=== PATIENT | female | born 1990 | race Caucasian/White ===

== ENCOUNTER → 2018-09-11 07:13 | Outpatient (CLI) | payer OTHER, SELFPAY ==
--- NOTE | 2018-09-11 | DI.MRI.S_ITS ---
PROCEDURE: MR LUMBAR SPINE WO CON INDICATIONS: LOW BACK PAIN TECHNIQUE: Noncontrast sagittal T1 spin echo and T2 fast echo, sagittal STIR, axial T1 and T2 fast spin echo through the lumbar spine. In cases with scoliosis, additional coronal T2 fast spin echo may be performed. COMPARISON: None. FINDINGS: Image quality: Excellent. Alignment and Curvature: There is normal bony alignment. Bone Marrow: Marrow is of normal overall signal. No acute vertebral body compression fractures. Spinal Cord: Conus medullaris terminates at the L2 level. Visualized cord demonstrates normal signal and size. Paraspinous Soft Tissues: No paravertebral masses. Discs: Moderate desiccation is present at L5-S1. L1-L2: No disc bulge, spinal stenosis or foraminal narrowing. L2-L3: No disc bulge, spinal stenosis or foraminal narrowing. L3-L4: Minimal disc bulge without spinal stenosis or foraminal narrowing L4-L5: Minimal disc bulge spinal stenosis or foraminal narrowing. L5-S1: Mild disc bulge with slight compromise the lateral recesses bilaterally. There is a punctate area of increased T2 signal within the posterior aspect of the disc likely represent annular fissure. Minimal bilateral foraminal narrowing. IMPRESSION: 1. Disc bulge with minimal bilateral foraminal narrowing at L5-S1. Dictated by: Izabella Robins M.D. on 09/11/2018 at 9:58 Approved by: Izabella Robins M.D. on 09/11/2018 at 10:17
== END ==
PROVIDERS: Visit Provider Physician Assistant
DX: M54.5 Low back pain (principal)
CPT/HCPCS: 72148

== ENCOUNTER → 2021-05-15 10:50 | Outpatient (CLI) | payer OTHER, SELFPAY ==
[2021-05-15 13:03] LABS: HCG Quantitative /Beta subunit 112.3 mIU/mL
== END ==
PROVIDERS: PCP Registered Nurse; Referring Provider Physician Assistant; Visit Provider Physician Assistant
DX: Z34.91 Encounter for supervision of normal pregnancy, unspecified, first trimester (principal)
CPT/HCPCS: 36415; 84702

== ENCOUNTER → 2021-05-17 15:36 | Outpatient (CLI) | payer OTHER, SELFPAY ==
[2021-05-17 16:20] LABS: HCG Quantitative /Beta subunit 53.9 mIU/mL
== END ==
PROVIDERS: PCP Registered Nurse; Referring Provider Obstetrics & Gynecology; Visit Provider Obstetrics & Gynecology
DX: O26.859 Spotting complicating pregnancy, unspecified trimester (principal)
CPT/HCPCS: 36415; 84702

== ENCOUNTER → 2021-06-05 13:11 | Outpatient (CLI) | payer OTHER, SELFPAY ==
--- NOTE | 2021-06-05 13:13 | DI.US.S_ITS ---
PROCEDURE: US PELVIC COMPLETE INDICATIONS: RULE OUT RETAINED PRODUCTS OF CONCEPTION TECHNIQUE: Real-time scanning was performed of the pelvic organs, with image documentation. Additional endovaginal scanning was necessary due to incomplete visualization of the adnexal and endometrial structures by transabdominal scanning. COMPARISON: None. FINDINGS: Uterus: The uterine body measures 3.9 x 4.5 x 8.2 centimeters. The endometrium measures approximately 5 millimeters in double air thickness. Two brightly echogenic foci within the endometrium measuring up to one-2 millimeters are nonspecific. Trace fluid in the cervical canal. Ovaries: No solid adnexal or ovarian mass. Probable corpus luteum cyst in the left ovary. Hemorrhagic cyst in the right ovary measuring 4.1 centimeters. Normal flow in both ovaries. Other: No pathologic free abdominal or pelvic fluid. IMPRESSION: No evidence of retained products of conception. Dictated by: Juan Goldberg M.D. on 06/05/2021 at 14:38 Approved by: Juan Goldberg M.D. on 06/05/2021 at 14:40
[2021-06-05 15:23] LABS: Alanine Aminotransferase 14 IU/L (<35); Alkaline Phosphatase 71 U/L (38-126); Bilirubin Total 0.3 mg/dL (0.2-1.3); Calcium 9.6 mg/dL (8.4-10.2); Estimated Glomerular Filt Rate > 60.0 mL/min (>60); Glucose 90 mg/dL (70-100); HEMOLYSIS < 15 (0-50)
[2021-06-05 15:39] LABS: HCG Quantitative /Beta subunit 386.8 mIU/mL
[2021-06-05 15:42] LABS: Add Manual Diff / Slide Review NO; Basophils Absolute Auto 100 /uL (0-100); Basophils Percent Auto 0.7 % (0-2); Eosinophils Absolute Auto 100 /uL (0-450); Eosinophils Percent Auto 1.6 % (2-4); Hematocrit 38.2 % (36-46); Hemoglobin 12.9 g/dL (12.0-16.0); Lymphocytes Absolute Auto 3400 /uL (1100-4500); Lymphocytes Percent Auto 42.7 % (25-40); Mean Corpuscular HGB Conc 33.8 % (30-36); Mean Corpuscular Hemoglobin 29.3 PG (26-34); Mean Corpuscular Volume 86.6 fL (80-100); Monocytes Absolute Auto 500 /uL (0-900); Monocytes Percent Auto 5.8 % (3-14); Neutrophils Absolute Auto 3900 /uL (1500-7000); Neutrophils Percent Auto 49.2 % (50-75); Platelet Count 268 X10^3/uL (150-400); Red Blood Cell Count 4.41 X10^6/uL (4.0-5.2); Red Cell Distribution Width 12.5 % (11.6-14.8)
[2021-06-05 16:14] LABS: Free T4, Direct Thyroxine 1.04 ng/dL (0.78-2.19)
[2021-06-05 16:28] LABS: Thyroid Stimulating Hormone 1.91 uIU/mL (0.47-4.68)
[2021-06-05 21:14] LABS: Albumin 4.5 g/dL (3.5-5.0); Albumin Globulin Ratio 1.7 (1.0-2.8); Aspartate Aminotransferase 25 IU/L (14-36); BUN Creatinine Ratio 13.6 (6-22); Blood Urea Nitrogen 8 mg/dL (7-17); Carbon Dioxide 25 mmol/L (22-32); Chloride 105 mmol/L (98-107); Globulin 2.6 g/dL (1.7-4.1); Potassium 3.9 mmol/L (3.4-5.1); Sodium 137 mmol/L (137-145); Total Protein 7.1 g/dL (6.3-8.2)
== END ==
PROVIDERS: PCP Registered Nurse; Referring Provider Obstetrics & Gynecology; Visit Provider Obstetrics & Gynecology
DX: O03.4 Incomplete spontaneous abortion without complication (principal); N93.9 Abnormal uterine and vaginal bleeding, unspecified; N83.201 Unspecified ovarian cyst, right side; F41.8 Other specified anxiety disorders; M25.50 Pain in unspecified joint; E55.9 Vitamin D deficiency, unspecified
CPT/HCPCS: 36415; 76830; 76856; 80053; 82306; 84439; 84443; 84702; 85025; 86850; 86900; 86901

== ENCOUNTER → 2021-06-05 16:15 | Outpatient (CLI) | payer OTHER, SELFPAY | PROVIDERS: PCP Registered Nurse; Visit Provider Obstetrics & Gynecology | DX: O20.9 Hemorrhage in early pregnancy, unspecified (principal) | CPT/HCPCS: 86850; 86900; 86901 ==

== ENCOUNTER → 2021-06-06 10:51 | Outpatient (CLI) | payer OTHER, SELFPAY ==
[2021-06-06 11:46] LABS: HCG Quantitative /Beta subunit 436.5 mIU/mL
== END ==
PROVIDERS: PCP Registered Nurse; Referring Provider Obstetrics & Gynecology; Visit Provider Obstetrics & Gynecology
DX: O20.9 Hemorrhage in early pregnancy, unspecified (principal)
CPT/HCPCS: 36415; 84702

== ENCOUNTER → 2021-06-08 10:53 | Outpatient (CLI) | payer OTHER, SELFPAY ==
[2021-06-08 11:50] LABS: HCG Quantitative /Beta subunit 481.2 mIU/mL
== END ==
PROVIDERS: PCP Registered Nurse; Referring Provider Obstetrics & Gynecology; Visit Provider Obstetrics & Gynecology
DX: O20.9 Hemorrhage in early pregnancy, unspecified (principal)
CPT/HCPCS: 36415; 84702

== ENCOUNTER → 2021-06-14 10:34 | Outpatient (CLI) | payer OTHER, SELFPAY ==
[2021-06-14 11:42] LABS: HCG Quantitative /Beta subunit 448.3 mIU/mL
== END ==
PROVIDERS: PCP Registered Nurse; Referring Provider Obstetrics & Gynecology; Visit Provider Obstetrics & Gynecology
DX: O00.90 Unspecified ectopic pregnancy without intrauterine pregnancy (principal)
CPT/HCPCS: 36415; 84702

== ENCOUNTER 2021-06-20 17:29 | Emergency (ER) | payer OTHER, SELFPAY ==
[2021-06-20 17:42] VITALS: BP 125/66; PULSE 90; RESP 18; TEMP 37.2; O2SAT 100; BMI 27.4
[2021-06-20 17:49] VITALS: PULSE 91; O2SAT 100
--- NOTE | 2021-06-20 17:57 | PC.NURSE ---
Pt was just tested and treated for Rhogam last week
[2021-06-20 18:00] VITALS: BP 109/68; PULSE 87; O2SAT 100
--- NOTE | 2021-06-20 18:18 | ED.ABDPAIN ---
HPI - Abdominal Pain General Chief Complaint: Abdominal Pain Stated Complaint: abd and low back pain Time Seen by Provider: 06/20/21 18:06 Source: patient Mode of arrival: Ambulatory Limitations: no limitations History of Present Illness HPI narrative: Patient followed by LAURA Love for ectopic . Had methotrexate treatment on the 08 of June. Last ultrasound June 05. Continue two weeks of pelvic pain rating from rectum to umbilicus. Today with low back pain. Has continuous vaginal bleeding from methotrexate for 2 weeks as well. Ongoing fibromyalgia tired and weak but not any different from usual. No syncope. No urinary complaints. Related Data Home Medications Medication Instructions Recorded Confirmed vitamins no.165-iron 13 1 tab PO DAILY tab 05/23/21 06/21/21 mg-folic acid 1 mg chewable tablet Previous Rx's Medication Instructions Recorded oxycodone 5 mg tablet 5 mg PO Q4H PRN #20 tab 06/21/21 Allergies Allergy/AdvReac Type Severity Reaction Status Date / Time Bleach (Sodium Hypochlorite) AdvReac Mild Rash Verified 06/21/21 15:04 Review of Systems Review of Systems Narrative: GENERAL: Denies chills, fatigue, malaise, fever, sweats. HEENT: Denies sinus pain, ear pain, sore throat RESPIRATORY: Denies dyspnea, cough CARDIOVASCULAR: Denies chest pain, palpitations GASTROINTESTINAL: Denies nausea, vomiting, complains of abdominal pain : Denies dysuria, frequency, hematuria, complains of vaginal bleeding MUSCULOSKELETAL: denies muscle or bony pain SKIN: Denies rash, skin lesions NEUROLOGIC: Denies weakness, numbness Patient History Medical History Adult general medical exam Chronic back pain (~2018) Fibromyalgia (~2018) History of gonorrhea Lupus (~2017) Shoulder pain (~2018) Surgical History Anesthesia History of tonsillectomy (~2010) Family History Mother Miscarriage Sister Miscarriage Sister Appendicitis Grandfather Hyperlipidemia Grandmother Hypertension Grandfather Hyperlipidemia Grandmother Hypertension Social History household members: spouse Smoking Status: Never smoker alcohol intake: current Smoking Status: Never smoker alcohol intake frequency: 0-2 drinks per day Substance Use Type: does not use Exam Narrative Exam Narrative: GENERAL: in no distress, not toxic not dyspneic HEAD: Normocephalic. EYES: Pupils equal round No scleral icterus. No injection no discharge ENT: Mucous membranes moist. NECK: Trachea midline. CARDIOVASCULAR: Regular rate and rhythm without murmurs RESPIRATORY: Clear to auscultation. Breath sounds equal bilaterally. No wheezes, rales, or rhonchi. GASTROINTESTINAL: Abdomen soft, mild pubic tenderness, bowel sounds present no peritoneal signs no CVA tenderness EXTREMITIES: No gross deformities. BACK: No flank tenderness. NEURO: AOx4. SKIN: Warm and dry PSYCH: Not anxious, is cooperative Initial Vital Signs Initial Vital Signs: Vital Signs Temperature 99 F 06/20/21 17:42 Pulse Rate 90 06/20/21 17:42 Respiratory Rate 18 06/20/21 17:42 Blood Pressure 125/66 06/20/21 17:42 Pulse Oximetry 100 06/20/21 17:42 Course Course Course Narrative: No new issues during course of stay. Orders Ordered: Discontinued Medications Sodium Chloride (Normal Saline 0.9%) 500 mls @ 1,000 mls/hr IV BOLUS ONE Stop: 06/20/21 19:38 Last Infusion: 06/20/21 20:13 Dose: 0 mls/hr Documented by: Admin: 06/20/21 19:42 Dose: 1,000 mls/hr Documented by: ADILIA Lorazepam (Lorazepam 2 Mg/Ml Inj) 0.5 mg IV NOW ONE Stop: 06/20/21 19:33 Last Admin: 06/20/21 19:42 Dose: 0.5 mg Documented by: ADILIA Reevaluation(s) Reevaluation #1: Spoke with patient and regarding results. They do desire CT scan abdomen pelvis as pain has been different from previous 2 weeks. Patient is on methotrexate immune suppression and concerned for underlying inflammation Time: 19:13 Reevaluation #2: Spoke with patient and results of CT scan and labs. Agree for follow-up with OBGYN and will give patient referral for General surgery as well. Not toxic Time: 21:14 Consultations Consultation #1: Spoke with Dr. Pritchard OBGYN, no indication for ultrasound, pain as expected for ectopic and after receiving methotrexate. Quantitative hCG is lowering as expected. Patient to stay on a course with next week repeat lab work Time: 19:10 Vital Signs Vital signs: Vital Signs - 8 hr 06/20/21 17:42 06/20/21 17:49 06/20/21 18:00 Temperature 99 F Pulse Rate 90 91 H 87 Respiratory Rate 18 Blood Pressure 125/66 109/68 Pulse Oximetry 100 100 100 06/20/21 18:30 06/20/21 19:00 Temperature Pulse Rate 90 87 Respiratory Rate Blood Pressure 112/68 118/74 Pulse Oximetry 100 100 MDM - Abdominal Pain Medical Records Medical records narrative: [address] [id number] ReportSigned Patient: Izabella Harding MMR#: [id number]: 1990Acct:[id number]/Sex: 30 / FDate of Service: 06/05/21Loc: USAccession Number: [id number] Procedure: US pelvic complete Ordering Provider: Cordelia Pritchard MD PROCEDURE: US PELVIC COMPLETE INDICATIONS: RULE OUT RETAINED PRODUCTS OF CONCEPTION TECHNIQUE: Real-time scanning was performed of the pelvic organs, with image documentation. Additional endovaginal scanning was necessary due to incomplete visualization of the adnexal and endometrial structures by transabdominal scanning. COMPARISON: None. FINDINGS: Uterus: The uterine body measures 3.9 x 4.5 x 8.2 centimeters. The endometrium measures approximately 5 millimeters in double air thickness. Two brightly echogenic foci within the endometrium measuring up to one-2 millimeters are nonspecific. Trace fluid in the cervical canal. Ovaries: No solid adnexal or ovarian mass. Probable corpus luteum cyst in the left ovary. Hemorrhagic cyst in the right ovary measuring 4.1 centimeters. Normal flow in both ovaries. Other: No pathologic free abdominal or pelvic fluid. IMPRESSION: No evidence of retained products of conception. Dictated by: Juan Goldberg M.D. on 06/05/2021 at 14:38 Approved by: Juan Goldberg M.D. on 06/05/2021 at 14:40 Lab Data Result diagrams: 06/20/21 17:51 06/20/21 17:51 Labs: Lab Results 07/27/21 07/27/21 Range/Units 17:51 17:51 WBC 11.0 (4.5-11.0) X10^3/uL RBC 4.65 (4.0-5.2) X10^6/uL Hgb 13.5 (12.0-16.0) g/dL Hct 40.4 (36-46) % MCV 86.8 (80-100) fL MCH 28.9 (26-34) PG MCHC 33.3 (30-36) % RDW 13.0 (11.6-14.8) % Plt Count 332 (150-400) X10^3/uL Neut % (Auto) 59.4 (50-75) % Lymph % (Auto) 33.3 (25-40) % [place] % (Auto) 5.9 (3-14) % Eos % (Auto) 0.8 L (2-4) % Baso % (Auto) 0.6 (0-2) % Neut # (Auto) 6600 (1758-4145) /uL Lymph # (Auto) 3700 (9308-3340) /uL [place] # (Auto) 700 (0-900) /uL Eos # (Auto) 100 (0-450) /uL Baso # (Auto) 100 (0-100) /uL Sodium 138 (137-145) mmol/L Potassium 3.7 (3.4-5.1) mmol/L Chloride 103 (98-107) mmol/L Carbon Dioxide 24 (22-32) mmol/L BUN 9 (7-17) mg/dL Creatinine 0.63 (0.52-1.04) mg/dL Estimated GFR > 60.0 (>60) mL/min BUN/Creatinine Ratio 14.3 (6-22) Glucose 96 (70-100) mg/dL Calcium 10.1 (8.4-10.2) mg/dL Total Bilirubin 0.4 (0.2-1.3) mg/dL AST 23 (14-36) IU/L ALT 15 (<35) IU/L Alkaline Phosphatase 79 (38-126) U/L Total Protein 7.9 (6.3-8.2) g/dL Albumin 4.9 (3.5-5.0) g/dL Globulin 3.0 (1.7-4.1) g/dL Albumin/Globulin Ratio 1.6 (1.0-2.8) HCG, Quant 184.4 mIU/mL Imaging Data CT scan - abdomen/pelvis: Radiologist's Impression: [address] [id number] Scan ReportSigned Patient: Izabella Harding MMR#: [id number]: 1990Acct:[id number]/Sex: 30 / FDate of Service: 06/20/21Loc: EDAccession Number: [id number] Procedure: CT abdomen pelvis w con Ordering Provider: Salomon Weaver MD PROCEDURE: CT ABDOMEN PELVIS W CON INDICATIONS: IV contrast only/abdominal pain TECHNIQUE: After the administration of intravenous contrast, axial sections acquired from the lung bases to the pubic symphysis. Coronal and sagittal reformats were performed. For radiation dose reduction, the following was used: automated exposure control, adjustment of mA and/or kV according to patient size. COMPARISON: [facility], , PELVIC COMPLETE, 06/05/2021, 13:54. FINDINGS: Image quality: Excellent. Lung bases: Unremarkable. Heart: No significant findings. ABDOMEN: Liver: Unremarkable. Gallbladder: Within normal limits. Biliary ducts: Unremarkable. Pancreas: Unremarkable. Spleen: Unremarkable. Adrenal Glands: Unremarkable. Kidneys and Ureters: Unremarkable. Stomach and Bowel: There is no evidence of bowel obstruction. Unenhanced bowel loops shows no gross bowel wall thickening or mesenteric fat stranding. Mild fecal stasis in the colon is seen. Mild colonic diverticulosis is seen, no CT evidence of acute diverticulitis. No discrete abscess collection is seen. Peritoneum: No abnormal intraperitoneal fluid seen in the abdomen. No free air. Ventral Wall: No hernias. Abdominal Nodes: No retroperitoneal or mesenteric adenopathy by size criteria. Vessels: Aorta and inferior vena cava are normal in size. PELVIS: Pelvic Organs: Uterus is within normal limits. Hypodense areas are seen in bilateral ovaries which may represent ovarian cysts. Ectopic gestational sac cannot be excluded given patient's history. Bladder: Unremarkable. Pelvic Nodes: No enlarged lymph nodes. There is small amount of pelvic free fluid in posterior cul-de-sac. Miscellaneous: No hernias are seen. Bones: Unremarkable. IMPRESSION: 1. No secondary CT signs of acute appendicitis. No abnormal bowel wall thickening. No bowel obstruction. No abscess collection. No peritoneal free fluid or free air. 2. Small amount of free fluid in posterior cul-de-sac. Uterus is within normal limits. Suggestion of small cystic areas seen in bilateral ovaries which may represent ovarian cysts or hemorrhagic cysts. Ectopic gestational sac cannot be excluded given patient's history of recently diagnosed ectopic , please correlate clinically. Dictated by: Wilder Cope M.D. on 06/20/2021 at 20:33 Approved by: Wilder Cope M.D. on 06/20/2021 at 20:40 [facility] Narrative Medical decision making narrative: Appropriate discharge home. Reviewed laboratory studies with OBGYN. Referral given for General surgery for evaluation of abdominal pelvic pain. Exam and imaging reassuring. Return precautions reviewed patient and . Not toxic discharge. Discharge Plan Departure Patient Disposition: Home Clinical Impression: Pelvic pain Instructions: DI for Abdominal Pain-Adult Activity Restrictions/Additional Instructions: Return if worsening questions or concerns. Have your repeat blood work done next week as scheduled. Call provided general surgery office tomorrow for re-evaluation of your abdominal/pelvic pain. Continue home medications. Prescriptions: No Action PNV no.165-iron fum-folic acid 13 mg iron- 1 mg tablet,chewable 1 tab PO DAILY RF: 0 oxycodone 5 mg tablet 5 mg PO Q4H PRN (Reason: pain) Qty: 20 RF: 0 Referrals: Ashok Overton ARNP [Primary Care Provider] - Kan Michelle MD [Physician] -
[2021-06-20 18:28] LABS: Alanine Aminotransferase 15 IU/L (<35); Albumin 4.9 g/dL (3.5-5.0); Albumin Globulin Ratio 1.6 (1.0-2.8); Alkaline Phosphatase 79 U/L (38-126); Aspartate Aminotransferase 23 IU/L (14-36); BUN Creatinine Ratio 14.3 (6-22); Bilirubin Total 0.4 mg/dL (0.2-1.3); Blood Urea Nitrogen 9 mg/dL (7-17); Calcium 10.1 mg/dL (8.4-10.2); Carbon Dioxide 24 mmol/L (22-32); Chloride 103 mmol/L (98-107); Estimated Glomerular Filt Rate > 60.0 mL/min (>60); Glucose 96 mg/dL (70-100); HEMOLYSIS < 15 (0-50); Potassium 3.7 mmol/L (3.4-5.1); Sodium 138 mmol/L (137-145); Total Protein 7.9 g/dL (6.3-8.2)
[2021-06-20 18:29] LABS: Add Manual Diff / Slide Review NO; Basophils Absolute Auto 100 /uL (0-100); Basophils Percent Auto 0.6 % (0-2); Eosinophils Absolute Auto 100 /uL (0-450); Eosinophils Percent Auto 0.8 % (2-4); Hematocrit 40.4 % (36-46); Hemoglobin 13.5 g/dL (12.0-16.0); Lymphocytes Absolute Auto 3700 /uL (1100-4500); Lymphocytes Percent Auto 33.3 % (25-40); Mean Corpuscular HGB Conc 33.3 % (30-36); Mean Corpuscular Hemoglobin 28.9 PG (26-34); Mean Corpuscular Volume 86.8 fL (80-100); Monocytes Absolute Auto 700 /uL (0-900); Monocytes Percent Auto 5.9 % (3-14); Neutrophils Absolute Auto 6600 /uL (1500-7000); Neutrophils Percent Auto 59.4 % (50-75); Platelet Count 332 X10^3/uL (150-400); Red Blood Cell Count 4.65 X10^6/uL (4.0-5.2)
[2021-06-20 18:30] VITALS: BP 112/68; PULSE 90; O2SAT 100
[2021-06-20 18:44] LABS: HCG Quantitative /Beta subunit 184.4 mIU/mL
[2021-06-20 19:00] VITALS: BP 118/74; PULSE 87; O2SAT 100
--- NOTE | 2021-06-20 19:08 | DI.CT.S_ITS ---
PROCEDURE: CT ABDOMEN PELVIS W CON INDICATIONS: IV contrast only/abdominal pain TECHNIQUE: After the administration of intravenous contrast, axial sections acquired from the lung bases to the pubic symphysis. Coronal and sagittal reformats were performed. For radiation dose reduction, the following was used: automated exposure control, adjustment of mA and/or kV according to patient size. COMPARISON: [facility], , US PELVIC COMPLETE, 06/05/2021, 13:54. FINDINGS: Image quality: Excellent. Lung bases: Unremarkable. Heart: No significant findings. ABDOMEN: Liver: Unremarkable. Gallbladder: Within normal limits. Biliary ducts: Unremarkable. Pancreas: Unremarkable. Spleen: Unremarkable. Adrenal Glands: Unremarkable. Kidneys and Ureters: Unremarkable. Stomach and Bowel: There is no evidence of bowel obstruction. Unenhanced bowel loops shows no gross bowel wall thickening or mesenteric fat stranding. Mild fecal stasis in the colon is seen. Mild colonic diverticulosis is seen, no CT evidence of acute diverticulitis. No discrete abscess collection is seen. Peritoneum: No abnormal intraperitoneal fluid seen in the abdomen. No free air. Ventral Wall: No hernias. Abdominal Nodes: No retroperitoneal or mesenteric adenopathy by size criteria. Vessels: Aorta and inferior vena cava are normal in size. PELVIS: Pelvic Organs: Uterus is within normal limits. Hypodense areas are seen in bilateral ovaries which may represent ovarian cysts. Ectopic gestational sac cannot be excluded given patient's history. Bladder: Unremarkable. Pelvic Nodes: No enlarged lymph nodes. There is small amount of pelvic free fluid in posterior cul-de-sac. Miscellaneous: No hernias are seen. Bones: Unremarkable. IMPRESSION: 1. No secondary CT signs of acute appendicitis. No abnormal bowel wall thickening. No bowel obstruction. No abscess collection. No peritoneal free fluid or free air. 2. Small amount of free fluid in posterior cul-de-sac. Uterus is within normal limits. Suggestion of small cystic areas seen in bilateral ovaries which may represent ovarian cysts or hemorrhagic cysts. Ectopic gestational sac cannot be excluded given patient's history of recently diagnosed ectopic , please correlate clinically. Dictated by: Wlider Cope M.D. on 06/20/2021 at 20:33 Approved by: Wilder Cope M.D. on 06/20/2021 at 20:40
--- NOTE | 2021-06-20 19:24 | PC.NURSE ---
Pt having sudden change in pain right lower abdomen. Dr Weaver aware,no new orders.
[2021-06-20] MEDS: LORazepam 2 MG/ML INJ 0.5 MG IV (19:42)
[2021-06-20] MEDS: SODIUM CHLORIDE 0.9% 500 ML 1000 ML IV (19:42)
[2021-06-20 22:02] VITALS: BP 118/72; PULSE 98; RESP 18; O2SAT 98
== END 2021-06-20 22:04 | disposition home or self-care (01) ==
PROVIDERS: Emergency Medicine; Emergency Provider Emergency Medicine; PCP Registered Nurse
DX: R10.2 Pelvic and perineal pain (principal)
CPT/HCPCS: 36415; 74177; 80053; 84702; 85025; 96361; 96374; 99284; J2060

== ENCOUNTER → 2021-06-21 13:08 | Outpatient (CLI) | payer OTHER, SELFPAY ==
[2021-06-21 13:33] LABS: COVID19 -Nasal RAPID Negative (Negative)
== END ==
PROVIDERS: PCP Registered Nurse; Visit Provider Obstetrics & Gynecology
DX: Z01.812 Encounter for preprocedural laboratory examination (principal); Z20.822 Contact with and (suspected) exposure to COVID-19
CPT/HCPCS: 87635

== ENCOUNTER 2021-06-21 14:25 | Day surgery (SDC) | payer OTHER, SELFPAY ==
[2021-06-21] VITALS (12 sets, daily range): BP systolic 114–128; BP diastolic 66–79; PULSE 96–111; RESP 10–18; TEMP 36.4–37.4; O2SAT 98–100; BMI 28.2
--- NOTE | 2021-06-21 | PATH_ITS ---
[facility] Accession Number: [id number] . 01 Material submitted: . fallopian tube - RIGHT FALLOPIAN TUBE WITH ECTOPIC . 02 Diagnosis: Right Fallopian Tube with Ectopic, Salpingectomy: Fallopian tube with ectopic gestation. Negative for atypia or malignancy. MRV 06/23/2021 1021 Local . 02 Electronically signed: . Daija Gallego MD, Pathologist NPI- [id number] . 01 Gross description: . The specimen is received in formalin, labeled right fallopian tube with ectopic and consists of a 6.0 cm in length by up to 2.0 cm in diameter fallopian tube with a pink-purple smooth serosa. Sectioning reveals a lawrence-brown mucosa. The lumen contains red-brown clotted blood. Also received within the specimen container are multiple additional fragments of red-brown clotted blood measuring 5.0 x 4.5 x 3.0 cm in aggregate. No chorionic villi or parts are identified. Hot Die Press Feeder sections are submitted. . A1: Margin (blue), central cross-sections. A2-A6: Dilated lumen and contents. A7-A8: Bisected fimbria. (EA:[id number]) /MRV 06/22/2021 1217 Local . 02 Pathologist provided ICD-10: O00.101 . 02 CPT . 413348 Performed at: 01 [facility] [address] [place] [address], [place], [place] [id number] MD Amarjit Contreras MD Phone: [phone] Performed at: [address] [facility] [address] [place], [place] [id number] MD Madalyn Graham MD Phone: [phone]
[2021-06-21] MEDS: LACTATED RINGERS 1,000 ML 42 ML IV (15:17)
--- NOTE | 2021-06-21 16:15 | PM.PREOP ---
Pre-operative Note COVID-19 COVID-19 status: Negative Result date/Date tested (Pos, Neg/Pending): 06/21/21 Interval Note History & Physical reviewed/Exam performed by Physician: Yes Changes to H&P: No H&P completed within 30 days and has changed as indicated here:: 06/21/21
--- NOTE | 2021-06-21 16:57 | SUR.OPER ---
Lithotomy on padded OR bed, head on pillow, arms padded with gel pads and tucked at sides. Legs secured in padded yellow fins stirrups.
[2021-06-21] MEDS: BUPIVACAINE 0.25% W/ EPI 30 ML VIAL INJ (17:09)
[2021-06-21] MEDS: fentaNYL 100 MCG/2 ML INJ IV ×5 (17:47→18:34)
[2021-06-21] MEDS: OXYCODONE/ACETAMINOPHEN 5/325 TABLET 1 TAB PO (18:31)
--- NOTE | 2021-06-21 18:41 | SUR.PHASEI ---
Appears relaxed, states that her pain is improving, currently 5/10. Resting quietly
--- NOTE | 2021-06-21 19:04 | SUR.PHASEI ---
Spouse here, reviewing discharge instructions with him. Patient c/o rectal pressure, declines need for more pain medication. No nausea
--- NOTE | 2021-06-21 19:07 | SUR.PHASEI ---
Dr. Pritchard here, talking with patient and spouse, showing them pictures. Pt asked Dr. Pritchard about the rectal pressure; states that she thinks that it will take some time to go away.
--- NOTE | 2021-06-21 20:04 | P.OP_ITS ---
Operative Date/Time/Diagnoses Date of procedure: 06/21/21 Time of procedure: 18:00 Pre-op diagnosis: Suspected right ectopic Post-op diagnosis: same Procedure & Clinicians Procedure: Procedures Operation Date: 06/21/21 15:30 Actual Procedure Side Surgeon eden JOHNSON laparoscopy, Removal of Right Fallopian Tube, Aspiration of Left Ovarian Cyst, Aspiration of hemoperitoneum Cordelia Pritchard MD Indications: Continued right lower quadrant pain Suspected right ectopic despite dropping beta HCG levels Surgeon: Cordelia Pritchard Anesthesia Type: General and Local Operative Notes Findings: 6 week size anteverted uterus Right ectopic Large amount of blood and clot in the posterior cul-de-sac and along the right ovarian fossa Normal liver and gallbladder Normal left tube 2 cm simple cyst on the left ovary Closure Type: primary Specimen(s): right tube (With ectopic) Estimated blood loss (mL): 10 Blood products transfused: none Procedure in detail: After informed consent was obtained, the patient was taken to the operating room where she was placed in the dorsal supine position. After adequate general endotracheal anesthesia was achieved, she was placed in the dorsal lithotomy position, and prepped and draped in the usual sterile fashion. A time-out was performed. A bivalve speculum was placed into the vagina and the anterior lip of the cervix was grasped with a single-tooth tenaculum. An attempt was made to dilate the cervix to place the Zumi uterine manipulator but could not be dilated past the # 4 Hegar dilator. The single-tooth tenaculum was removed from the anterior lip of the cervix. A moistened sponge stick was placed into the vagina. The bivalve speculum was removed from the vagina. Attention was turned to the abdomen where 6 cc of 0.25% Marcaine with epinephrine were injected in the umbilical fold. A 5 mm incision was made. The Veress needle was placed into the peritoneal cavity, and its placement confirmed by aspiration and drop test. The abdominal cavity was insufflated with 4.2 L of CO2. The Veress needle was removed, and a 5 mm trocar was placed without difficulty. Initial inspection of the pelvis and abdomen revealed a large amount of blood in the pelvis. Two other incisions were made 4 cm lateral to the midline at the level of the umbilicus after 6 cc of 0.25% Marcaine with epinephrine were injected. 5 mm trocars were placed under direct visualization. Using the suction medical records specialist, a large amount of blood and clot were removed from the pelvis. A probe was placed through the right trocar and the right tube was identified with a large amount of blood and tissue coming from the fimbriated end. The tube was dilated to 2.5 cm and the length of dilation was approximately 7 cm. The left tube and ovary were examined and other than a simple cyst on the left ovary they appeared normal. The appendix could not be visualized. The liver and gallbladder were examined and were found to be normal. Right tube was grasped with an atraumatic grasper. Using the PlasmaKinetic was settings at 40 w, the mesosalpinx was cauterized and cut all the way down to the cornua of the uterus. The tube was amputated at the cornua. The tube was placed into the anterior cul-de-sac. Approximately 4 L o irrigation were used to break up the clot and tissue. A fourth incision was made above the pubic symphysis after 6 cc of 0.25% Marcaine with epinephrine were injected. An 11 mm incision was made. An 11 mm trocar was placed under direct visualization. The small endobag was placed through the suprapubic incision and the right tube and large pieces of tissue and clot were placed into the bag. The trocar was removed and the bag was brought up through the suprapubic incision. The suprapubic incision was closed with 0 Vicryl on the fascia. The pelvis was again examined and there was no bleeding noted. All of the blood and clot had been removed. All of the incisions were closed with 4 0 Biosyn in a subcuticular fashion. Steri-Strips and Allevyn dressings were placed. The moistened sponge stick was removed from the vagina. Sponge, lap, and instrument counts were correct x2. Patient tolerated the procedure well, and was taken to PACU in stable condition. Complications: none Post-operative Condition: stable Disposition: PACU Plan for aftercare: Home after recovery
== END 2021-06-21 19:28 | disposition home or self-care (01) ==
PROVIDERS: PCP Registered Nurse; Referring Provider Obstetrics & Gynecology; Visit Provider Obstetrics & Gynecology
PROC: (CPT 49320; principal; 2021-06-21 15:30)
DX: O00.101 Right tubal pregnancy without intrauterine pregnancy (principal); N83.292 Other ovarian cyst, left side; O08 Complications following ectopic and molar pregnancy; O08.1 Delayed or excessive hemorrhage following ectopic and molar pregnancy; Z01.812 Encounter for preprocedural laboratory examination; Z20.822 Contact with and (suspected) exposure to COVID-19
CPT/HCPCS: 59151; 49322; 87635; J1100; J1885; J2405; J2704; J3010

== ENCOUNTER → 2021-09-05 12:16 | Outpatient (CLI) | payer OTHER, SELFPAY ==
--- NOTE | 2021-09-05 12:17 | DI.RAD.S_ITS ---
PROCEDURE: HL HYSTEROSAPINGOGRAPHY INDICATIONS: Right Ectopic and subsequent salpingectomy. COMPARISON: None. FINDINGS: Patient had a documented negative test prior to the study. Following speculum insertion, a balloon-tip catheter was inserted into the cervical canal, and secured by inflating the balloon. Contrast was then injected into the endometrial canal. Uterus: The uterine cavity appears normal in size and morphology, without synechiae or masses. Fallopian tubes: The left fallopian tube fills with contrast, and appear normal in caliber and morphology. There is ready dispersion of contrast into the peritoneal cavity. IMPRESSION: Patent left fallopian tube. Dictated by: Robles Jarrett M.D. on 09/05/2021 at 15:27 Approved by: Robles Jarrett M.D. on 09/05/2021 at 15:28
== END ==
PROVIDERS: Referring Provider Obstetrics & Gynecology; Visit Provider Obstetrics & Gynecology
DX: Z87.59 Personal history of other complications of pregnancy, childbirth and the puerperium (principal); Z09 Encounter for follow-up examination after completed treatment for conditions other than malignant neoplasm; Z90.79 Acquired absence of other genital organ(s)
CPT/HCPCS: 58340; 74740

== ENCOUNTER → 2021-09-07 14:30 | Outpatient (CLI) | payer OTHER, SELFPAY ==
--- NOTE | 2021-09-07 14:32 | DI.US.S_ITS ---
PROCEDURE: US PELVIC COMPLETE INDICATIONS: PELVIC PAIN. POST RIGHT ECTOPIC/SALPINGOOPHORECTOMY 06/21/21 TECHNIQUE: Real-time scanning was performed of the pelvic organs, with image documentation. Additional endovaginal scanning was necessary due to incomplete visualization of the adnexal and endometrial structures by transabdominal scanning. COMPARISON: [facility], US, US PELVIC COMPLETE, 06/05/2021, 13:54. [facility], US, US PELVIC COMPLETE, 06/21/2021, 12:59. FINDINGS: Uterus: Uterus is normal in size at 8.2 x 4.1 x 4.0 cm. The endometrium measures 5.6 mm in combined thickness. Echogenic foci are noted adjacent to the endometrium measuring 2 x 3 mm, unchanged. Ovaries: Right ovary measures 3.4 x 3.4 x 1.4 cm. Left ovary measures 3.2 x 2.1 x 2.8 cm. Other: No pathologic free abdominal or pelvic fluid. IMPRESSION: 1. No acute process. 2. Endometrial echogenic foci are unchanged. Dictated by: Izabella Robins M.D. on 09/07/2021 at 15:55 Approved by: Izabella Robins M.D. on 09/07/2021 at 15:56
== END ==
PROVIDERS: PCP Obstetrics & Gynecology; Referring Provider Obstetrics & Gynecology; Visit Provider Obstetrics & Gynecology
DX: R10.2 Pelvic and perineal pain (principal); Z87.59 Personal history of other complications of pregnancy, childbirth and the puerperium; N85.8 Other specified noninflammatory disorders of uterus
CPT/HCPCS: 76830; 76856

== ENCOUNTER → 2021-10-11 12:20 | Outpatient (CLI) | payer OTHER, SELFPAY ==
--- NOTE | 2021-10-11 12:21 | DI.US.S_ITS ---
PROCEDURE: US OB <= 14 WEEKS FETUS INDICATIONS: DATES OUTSIDE/PRIOR DATING DATA: Last menstrual period (LMP): 08/30/2021. LMP-based estimated date of delivery (OLY): 06/06/2022. First dating scan (date and location): 10/11/2021. Estimated date of delivery (OLY) from first dating scan: Estimated based on mean gestational sac diameter 06/08/2022. TECHNIQUE: Real-time scanning was performed of the fetus and maternal pelvic organs, with image documentation. Endovaginal scanning was also performed to better visualize the fetus and maternal ovaries. COMPARISON: [facility], , PELVIC COMPLETE, 09/07/2021, 15:01. FINDINGS: Mean gestational sac diameter 0.9 cm. This corresponds to estimated gestational age of 5 weeks 5 days. Embryo: No pole seen at this time. No yolk sac. Heart rate: Not detected. Measurement variability in dating: +/- 4 weeks by LMP, +/- 7 days by mean sac diameter (use before 6 weeks gestation if crown-rump length not able to be measured), +/- 5 days by crown-rump length (up to 8 weeks 6 days gestation), +/- 7 days by crown-rump length (up to 13 weeks 6 days gestation). Maternal organs: Ovaries are within normal limits. Left corpus luteum. IMPRESSION: Intrauterine gestational sac with estimated gestational age of 5 weeks 5 days. No pole at this time. Recommend short-term follow-up OB ultrasound to document the crown-rump length. Dictated by: Eliud Thakkar M.D. on 10/11/2021 at 13:50 Approved by: Eliud Thakkar M.D. on 10/11/2021 at 13:55
[2021-10-11 13:59] LABS: HCG Quantitative /Beta subunit 7577.7 mIU/mL
== END ==
PROVIDERS: Referring Provider Obstetrics & Gynecology; Visit Provider Obstetrics & Gynecology
DX: Z36.87 Encounter for antenatal screening for uncertain dates (principal); Z87.59 Personal history of other complications of pregnancy, childbirth and the puerperium; Z3A.01 Less than 8 weeks gestation of pregnancy
CPT/HCPCS: 36415; 76801; 76817; 84702

== ENCOUNTER → 2021-10-13 13:33 | Outpatient (CLI) | payer OTHER, SELFPAY ==
[2021-10-13 14:39] LABS: HCG Quantitative /Beta subunit 12201 mIU/mL
== END ==
PROVIDERS: Referring Provider Obstetrics & Gynecology; Visit Provider Obstetrics & Gynecology
DX: Z32.01 Encounter for pregnancy test, result positive (principal); Z87.59 Personal history of other complications of pregnancy, childbirth and the puerperium
CPT/HCPCS: 36415; 84702

== ENCOUNTER → 2022-02-17 10:03 | Outpatient (CLI) | payer OTHER, SELFPAY ==
[2022-02-17 16:03] LABS: Vitamin D 25 Hydroxy (D3) 29.3 ng/mL (30.0-100.0)
== END ==
PROVIDERS: PCP Family Medicine; Referring Provider Obstetrics & Gynecology; Visit Provider Obstetrics & Gynecology
DX: Z31.9 Encounter for procreative management, unspecified (principal); E55.9 Vitamin D deficiency, unspecified
CPT/HCPCS: 36415; 82306; 84144

== ENCOUNTER → 2022-05-21 14:30 | Outpatient (CLI) | payer OTHER, SELFPAY ==
[2022-05-21 15:45] LABS: HCG Quantitative /Beta subunit 51.8 mIU/mL
== END ==
PROVIDERS: PCP Family Medicine; Referring Provider Obstetrics & Gynecology; Visit Provider Obstetrics & Gynecology
DX: N91.2 Amenorrhea, unspecified (principal)
CPT/HCPCS: 36415; 84144; 84702

== ENCOUNTER → 2022-05-23 14:26 | Outpatient (CLI) | payer OTHER, SELFPAY ==
[2022-05-23 17:13] LABS: HCG Quantitative /Beta subunit 167.5 mIU/mL
== END ==
PROVIDERS: PCP Family Medicine; Referring Provider Obstetrics & Gynecology; Visit Provider Obstetrics & Gynecology
DX: N91.2 Amenorrhea, unspecified (principal)
CPT/HCPCS: 36415; 84702

== ENCOUNTER → 2022-05-25 14:26 | Outpatient (CLI) | payer OTHER, SELFPAY ==
[2022-05-25 15:12] LABS: HCG Quantitative /Beta subunit 412.7 mIU/mL
== END ==
PROVIDERS: PCP Family Medicine; Referring Provider Obstetrics & Gynecology; Visit Provider Obstetrics & Gynecology
DX: N91.2 Amenorrhea, unspecified (principal)
CPT/HCPCS: 36415; 84702

== ENCOUNTER → 2022-05-29 14:30 | Outpatient (CLI) | payer OTHER, SELFPAY ==
[2022-05-29 15:14] LABS: HCG Quantitative /Beta subunit 1911.2 mIU/mL
== END ==
PROVIDERS: PCP Family Medicine; Referring Provider Obstetrics & Gynecology; Visit Provider Obstetrics & Gynecology
DX: N91.2 Amenorrhea, unspecified (principal)
CPT/HCPCS: 36415; 84702

== ENCOUNTER → 2022-06-27 06:38 | Outpatient (CLI) | payer OTHER, SELFPAY ==
--- NOTE | 2022-06-27 | DI.US.S_ITS ---
PROCEDURE: US OB <= 14 WEEKS FETUS INDICATIONS: Lower abdominal pain, unspecified OUTSIDE/PRIOR DATING DATA: Last menstrual period (LMP): 04/25/2022. LMP-based estimated date of delivery (OLY): 01/30/2023. First dating scan (date and location): 06/26/2023. TECHNIQUE: Real-time scanning was performed of the fetus and maternal pelvic organs, with image documentation. Endovaginal scanning was also performed to better visualize the fetus and maternal ovaries. COMPARISON: [facility], , US ABDOMEN COMPLETE, 06/27/2022, 8:28. [facility], , US OB <= 14 WEEKS FETUS, 06/11/2022, 15:08. FINDINGS: Embryo: A single live intrauterine is seen. The measured heart rate is 165 beats per minute. The crown-rump length measures 2.3 cm, corresponding to an estimated gestational age of 9 weeks 0 days. It is too early for detailed anatomic assessment. By visual inspection, the amount of amniotic fluid is within normal limits. No significant findings of subchorionic/perigestational hemorrhage are seen. Maternal organs: The left ovary demonstrates an anechoic cyst with a septation that measures up to 6.4 cm. IMPRESSION: A single live intrauterine is seen. No significant discrepancy is found between the estimated gestational age based on these images and the estimated gestational age based upon the given date of the last menstrual period. The left ovary demonstrates a septated cyst that measures up to 6.4 cm. We strive to produce accurate, complete, and clear reports of imaging services. To assist us in improving patient care, this report was composed using standard report templates and voice recognition software. Therefore, it may contain abnormal punctuation, insertions and/or omissions. Occasional wrong-word or sound-alike substitutions may occur. Though we review the report and make efforts to correct it, we do recommend that the report be read carefully in proper context to recognize any text inaccuracies. Dictated by: Sunny Edmondson M.D. on 06/27/2022 at 9:37 Approved by: Sunny Edmondson M.D. on 06/27/2022 at 9:43
--- NOTE | 2022-06-27 | DI.US.S_ITS ---
PROCEDURE: US ABDOMEN COMPLETE INDICATIONS: Lower abdominal pain, unspecified TECHNIQUE: Real-time scanning was performed of the abdominal and retroperitoneal organs, with image documentation. COMPARISON: None. FINDINGS: Liver: Liver is normal in size and homogeneous in echotexture. Main portal vein is patent. Gallbladder: Within normal limits. Wall thickness is 1 millimeters. Biliary ducts: Intrahepatic bile ducts are non-dilated. Extrahepatic bile duct caliber measures 4 mm. Normal is 6-7 mm or less in diameter, or 10 mm or less post-cholecystectomy. Pancreas: Visualized portions of the pancreas are sonographically normal. Spleen: Spleen is normal in size and homogeneous in echotexture. Kidneys: No hydronephrosis. Normal cortical thickness. The right kidney measures 11.7 centimeters. Left kidney measures 12.6 centimeters. Aorta: Visualized aorta is normal in caliber at less than 3 cm. Iliacs: Proximal common iliac arteries are normal in caliber at less than 2.5 cm. IVC: Intrahepatic inferior vena cava is patent. Miscellaneous: At the focal area pain along the abdominal midline, no mass, fluid collection, or hernia is identified. IMPRESSION: Normal abdominal ultrasound. No abnormality identified to explain abdominal pain. Dictated by: Ming Rachel M.D. on 06/27/2022 at 8:57 Approved by: Ming Rachel M.D. on 06/27/2022 at 9:00
== END ==
PROVIDERS: PCP Family Medicine; Referring Provider Physician Assistant; Visit Provider Physician Assistant
DX: O34.81 Maternal care for other abnormalities of pelvic organs, first trimester (principal); N83.292 Other ovarian cyst, left side; O99.891 Other specified diseases and conditions complicating pregnancy; K59.00 Constipation, unspecified; R10.30 Lower abdominal pain, unspecified; Z3A.09 9 weeks gestation of pregnancy
CPT/HCPCS: 76700; 76801; 76817

== ENCOUNTER → 2022-07-13 08:53 | Outpatient (CLI) | payer OTHER, SELFPAY ==
[2022-07-13 10:17] LABS: Add Manual Diff / Slide Review NO; Basophils Absolute Auto 0 /uL (0-100); Basophils Percent Auto 0.3 % (0-2); Eosinophils Absolute Auto 100 /uL (0-450); Eosinophils Percent Auto 0.9 % (2-4); Hematocrit 36.8 % (36-46); Hemoglobin 12.7 g/dL (12.0-16.0); Lymphocytes Absolute Auto 2900 /uL (1100-4500); Lymphocytes Percent Auto 27.2 % (25-40); Mean Corpuscular HGB Conc 34.4 % (30-36); Mean Corpuscular Hemoglobin 29.4 PG (26-34); Mean Corpuscular Volume 85.5 fL (80-100); Monocytes Absolute Auto 600 /uL (0-900); Monocytes Percent Auto 5.4 % (3-14); Neutrophils Absolute Auto 7000 /uL (1500-7000); Neutrophils Percent Auto 66.2 % (50-75); Platelet Count 283 X10^3/uL (150-400); Red Blood Cell Count 4.31 X10^6/uL (4.0-5.2); Red Cell Distribution Width 12.8 % (11.6-14.8); White Blood Cell Count 10.6 X10^3/uL (4.5-11.0)
[2022-07-13 10:34] LABS: Appearance Urine UA CLEAR; Bilirubin Urine UA NEGATIVE (NEGATIVE); Color Urine UA YELLOW; Glucose Urine UA NEGATIVE (Negative); Ketones Urine UA NEGATIVE (NEGATIVE); Leukocyte Esterase Urine UA NEGATIVE (NEGATIVE); Nitrite Urine UA NEGATIVE (Negative); Occult Blood Urine UA NEGATIVE (Negative); Protein Urine UA NEGATIVE (Negative); Specific Gravity Urine UA <=1.005 (1.000-1.035); Urobilinogen Urine UA 0.2 E.U./dL (0.2)
[2022-07-13 10:38] LABS: pH Urine UA 7.5 (4.5-8.0)
[2022-07-13 11:18] LABS: HCG Quantitative /Beta subunit 71157 mIU/mL
[2022-07-14 08:04] LABS: RPR Screen Non Reactive (Non Reactive)
[2022-07-14 09:04] LABS: Varicella IgG Antibody 271 index (Immune >165)
[2022-07-16 16:36] LABS: Hepatitis B Surface Antigen NEGATIVE s/c (NEGATIVE); Rubella Antibody IgG 10.9 IU/mL (>15)
[2022-07-16 16:53] LABS: HIV 1 & 2 Ab/Ag 4th Gen Combo NEGATIVE (NEGATIVE); Hep C Virus Ab w/Reflex Quant NEGATIVE s/c (NEGATIVE)
== END ==
PROVIDERS: PCP Family Medicine; Referring Provider Obstetrics & Gynecology; Visit Provider Obstetrics & Gynecology
DX: Z34.81 Encounter for supervision of other normal pregnancy, first trimester (principal); N91.2 Amenorrhea, unspecified
CPT/HCPCS: 36415; 80055; 81003; 84702; 86787; 86803; 86850; 86900; 86901; 87086; 87389

== ENCOUNTER → 2022-08-07 10:19 | Outpatient (CLI) | payer OTHER, SELFPAY ==
[2022-08-07 15:02] LABS: Urine N gonorrhoeae NOT DETECTED
[2022-08-07 15:42] LABS: Urine Chlamydia NOT DETECTED
== END ==
PROVIDERS: PCP Family Medicine; Visit Provider Obstetrics & Gynecology
DX: Z34.82 Encounter for supervision of other normal pregnancy, second trimester (principal); Z3A.14 14 weeks gestation of pregnancy
CPT/HCPCS: 87491; 87591

== ENCOUNTER → 2022-09-07 09:12 | Outpatient (CLI) | payer OTHER, SELFPAY ==
--- NOTE | 2022-09-07 09:14 | DI.US.S_ITS ---
PROCEDURE: US OB >= 14 WEEKS FETUS INDICATIONS: ANATOMY OUTSIDE/PRIOR DATING DATA: Last menstrual period (LMP): 04/25/2022. LMP-based estimated date of delivery (OLY): 01/30/2023. First dating scan (date and location): 06/26/2023. Estimated date of delivery (OLY) from first dating scan: 02/19/2023. The calculations are made using the working OLY of 02/19/2023. TECHNIQUE: Real-time scanning was performed of the fetus, with image documentation and biometric measurements. Endovaginal scanning: Not performed COMPARISON: [facility], OB <= 14 WEEKS FETUS, 06/27/2022, 8:02. FINDINGS: General: A single living intrauterine gestation is present. Presentation: Vertex. Placenta: Placental position is anterior , without previa. Amniotic fluid index: 15.1 cm, normal range is 5-24 cm. Single deepest vertical pocket is 4.6 cm. heart rate: 150 beats per minute. Maternal cervical canal: 4.4 cm long. Normal lower limit is 2.5 cm. biometrics: Biparietal diameter: 19 weeks 4 days Head circumference: 19 weeks 2 days Abdominal circumference: 19 weeks 6 days Femur length: 21 weeks 0 day Clinically estimated gestational age: 19 weeks 2 days Composite gestational age from present scan: 20 weeks 0 day Estimated weight and percentile: 343 g; 93%. Anatomic survey: Neuro: Ventricles are non-dilated at less than 10 mm. Cisterna magna is normal at 3-11 mm. Cerebellum is normal in size and morphology. Nuchal skin fold: Normal at less than 6 mm between 14-21 weeks gestational age. Face: Nose and lips, facial profile are normal. Spine: No evidence for spina bifida. Heart: 4-chambered heart is present, with normal ventricular outflow tracts. Diaphragm: Diaphragm is intact. Stomach: Left-sided stomach is present. Kidneys: No hydronephrosis. Normal is less than 5 mm in 2nd trimester, less than 7 mm in 3rd trimester. Cord: 3-vessel cord has orthotopic insertion. Bladder: Normal in size. Extremities: All 4 extremities identified. IMPRESSION: 1. A single living intrauterine gestation with appropriate interval growth. 2. Normal anatomic survey. 3. weight at 93% for gestation age. We strive to produce accurate, complete, and clear reports of imaging services. To assist us in improving patient care, this report was composed using standard report templates and voice recognition software. Therefore, it may contain abnormal punctuation, insertions and/or omissions. Occasional wrong-word or sound-alike substitutions may occur. Though we review the report and make efforts to correct it, we do recommend that the report be read carefully in proper context to recognize any text inaccuracies. Dictated by: Jake Ortiz M.D. on 09/07/2022 at 14:51 Approved by: Jake Ortiz M.D. on 09/07/2022 at 14:56
== END ==
PROVIDERS: PCP Family Medicine; Referring Provider Obstetrics & Gynecology; Visit Provider Obstetrics & Gynecology
DX: Z34.82 Encounter for supervision of other normal pregnancy, second trimester (principal); Z3A.20 20 weeks gestation of pregnancy
CPT/HCPCS: 76811

== ENCOUNTER → 2022-10-17 07:49 | Outpatient (CLI) | payer OTHER, SELFPAY ==
[2022-10-17 09:45] LABS: Hematocrit 33.6 % (36-46); Hemoglobin 11.4 g/dL (12.0-16.0)
[2022-10-17 10:22] LABS: GTT (PREG) 1 Hour PP 50gm Dose 73 mg/dL (76-139)
== END ==
PROVIDERS: PCP Family Medicine; Referring Provider Obstetrics & Gynecology; Visit Provider Obstetrics & Gynecology
DX: O26.899 Other specified pregnancy related conditions, unspecified trimester (principal); Z67.91 Unspecified blood type, Rh negative; Z3A.26 26 weeks gestation of pregnancy
CPT/HCPCS: 36415; 82950; 85014; 85018; 86850

== ENCOUNTER → 2023-01-01 17:01 | Outpatient (CLI) | payer OTHER, SELFPAY ==
[2023-01-02 16:24] LABS: Strep Grp B PCR POS for Grp B Strep
== END ==
PROVIDERS: PCP Family Medicine; Visit Provider Obstetrics & Gynecology
DX: Z34.83 Encounter for supervision of other normal pregnancy, third trimester (principal); Z3A.35 35 weeks gestation of pregnancy
CPT/HCPCS: 87653

== ENCOUNTER 2023-01-22 08:23 | Inpatient (IN) | payer OTHER, SELFPAY ==
--- NOTE | 2023-01-22 08:25 | DI.US.S_ITS ---
PROCEDURE: US OB LIMITED INDICATIONS: LARGE FOR GESTATIONAL AGE AND FLUID OUTSIDE/PRIOR DATING DATA: Last menstrual period (LMP): 04/25/2022 LMP-based estimated date of delivery (OLY): 01/30/2023 First dating scan (date and location): 06/26/2022 Estimated date of delivery (OLY) from first dating scan: 01/30/2023 The calculations are made using the working OLY of 01/30/2023. TECHNIQUE: Real-time scanning was performed of the fetus, with image documentation and biometric measurements. Endovaginal scanning: Not indicated COMPARISON: None. FINDINGS: General: A single living intrauterine gestation is present. Presentation: Vertex Placenta: Placental position is anterior, without previa. Amniotic fluid index: 12.8 cm, normal range is 5-24 cm. Single deepest vertical pocket is 5.8 cm. heart rate: 145 beats per minute. Maternal cervical canal: Not well seen. biometrics: Biparietal diameter: 9.3 cm, 38 weeks, 0 day. Head circumference: 33.7 cm, 38 weeks, 5 days. Abdominal circumference: 38.4 cm, greater than 41 weeks. Femur length: 8.0 cm, 40 weeks, 6 days. Clinically estimated gestational age: 38 weeks, 6 days Composite gestational age from present scan: 39 weeks, 1 day. Estimated weight and percentile: 4245 g, 97% IMPRESSION: 1. Single live intrauterine gestation with fetus in vertex presentation. heart rate is 145 beats per minute. Normal amount of amniotic fluid. 2. Estimated weight is 97%. Abdominal circumference measurement is greater than 41 weeks. We strive to produce accurate, complete, and clear reports of imaging services. To assist us in improving patient care, this report was composed using standard report templates and voice recognition software. Therefore, it may contain abnormal punctuation, insertions and/or omissions. Occasional wrong-word or sound-alike substitutions may occur. Though we review the report and make efforts to correct it, we do recommend that the report be read carefully in proper context to recognize any text inaccuracies. Dictated by: Wilder Cope M.D. on 01/22/2023 at 9:30 Approved by: Wilder Cope M.D. on 01/22/2023 at 9:33
[2023-01-22 08:48] LABS: Add Manual Diff / Slide Review NO; Basophils Absolute Auto 100 /uL (0-100); Basophils Percent Auto 0.4 % (0-2); Eosinophils Absolute Auto 100 /uL (0-450); Eosinophils Percent Auto 1.1 % (2-4); Hematocrit 36.7 % (36-46); Hemoglobin 12.1 g/dL (12.0-16.0); Lymphocytes Absolute Auto 2800 /uL (1100-4500); Lymphocytes Percent Auto 22.6 % (25-40); Mean Corpuscular Hemoglobin 28.2 PG (26-34); Mean Corpuscular Volume 85.6 fL (80-100); Monocytes Absolute Auto 700 /uL (0-900); Monocytes Percent Auto 5.9 % (3-14); Neutrophils Absolute Auto 8700 /uL (1500-7000); Platelet Count 226 X10^3/uL (150-400); Red Blood Cell Count 4.29 X10^6/uL (4.0-5.2); Red Cell Distribution Width 13.3 % (11.6-14.8); White Blood Cell Count 12.4 X10^3/uL (4.5-11.0)
[2023-01-22 08:55] LABS: Aspartate Aminotransferase 23 IU/L (14-36); BUN Creatinine Ratio 14.5 (6-22); Blood Urea Nitrogen 9 mg/dL (7-17); Estimated Glomerular Filt Rate > 60 mL/min (>60); Uric Acid 5.5 mg/dL (2.5-6.2)
[2023-01-22 09:50] LABS: Protein (Total) Urine Random 7 mg/dL (0-12); Protein Creatinine Ratio Urine 0.05 GRAM/24H
[2023-01-22 13:56] VITALS: BP 130/70
[2023-01-22] MEDS: CITRIC ACID/SODIUM CITRATE 15 ML SOLUTION 30 ML PO (15:03)
--- NOTE | 2023-01-22 15:21 | SUR.OPER ---
Supine on Padded OR bed, head on pillow, safety belt at thigh, arms secured on padded arm boards at <90 degrees abduction. Bump under right buttock. Legs uncrossed with pillow under knees, gel pad to heels, tape over blanket to lower legs.
--- NOTE | 2023-01-22 15:50 | P.HPOB_ITS ---
OB HPI Date/Time Date of admission: 01/22/23 Date Patient Seen: 01/22/23 Time Patient Seen: 15:50 History of Present Condition Chief complaint: NST OLY Calculator Estimated Delivery Date Method Current WG Current Estimate 01/30/23 LMP (Certain) 38w 6d Other Estimates 01/31/23 Ultrasound #1 38w 5d Estimated Gestational Age (weeks): 39 : 3 Para: 0 care: good care, initiated at week # (11), number of visits (13) and pounds weight gain (47) Dating criteria OB: LMP confirmed by 1st trimester US Ultrasounds: normal 1st trimester US and normal mid trimester US (95%ile) Obstetrical complications: none and other (Contracted pelvis) Medical complications OB: psychiatric (anxiety and depression) and musculoskeletal (fibromyalgia) Indications Operative indications ( section): other (LGA baby, contracted pelvis) Preadmission Labs Last OB Lab Results: Blood Type O Negative 01/22/23 14:40 Antibody Screen Negative 10/17/22 09:06 Hematocrit 36.7 % (36-46) 01/22/23 08:36 Hemoglobin 12.1 g/dL (12.0-16.0) 01/22/23 08:36 Hepatitis B Surface Antigen Negative s/c (NEGATIVE) 07/13/22 09 :34 Hepatitis C Antibody Negative s/c (NEGATIVE) 07/13/22 09:34 Rubella Antibody 10.9 IU/mL (>15) L 07/13/22 09:34 Varicella-Zoster IgG Antibody 271 index (Immune >165) 07/13/22 09:34 Glucose 1 Hour 73 mg/dL (76-139) L 10/17/22 09:06 Group B Streptococcus (PCR) Pos for grp b strep H 01/01/23 17:0 1 -: Chlamydia screen: negative, Gonorrhea screen: negative and Urine: negative -: PAP smear: Normal External Labs -: Urine: negative Prior (ies) Past Pregnancies Del. Date GA/Weeks Labor Lgth Wt Sex Route Outcome Anesthesia Place Delv Breastfeed Preg Comp Name 06/23/21 8 ectopic IH salpinge ctomy MTX failed 09/25/21 8 spontaneous Evaluation Evaluation Baseline heart rate: 135 Variability: Moderate (11-25) monitor accelerations: Present Monitor Decelerations: Absent Contraction Frequency (minutes): 7 Uterine Contraction Intensity: Mild Status: Category l Comments: Ultrasound: 4300 g infant [facility] Medical History (Updated 12/12/22 @ 21:05 by Cordelia Pritchard MD) Bleeding in early Chronic back pain (~2017) Fibromyalgia (~2017) History of gonorrhea Shoulder pain (~2017) Surgical History (Updated 06/18/22 @ 16:04 by Maryjane Foster, RN) Anesthesia History of salpingectomy History of tonsillectomy (~2010) Family History (Updated 06/18/22 @ 16:06 by Maryjane Foster RN) Mother Miscarriage Sister Miscarriage Gestational diabetes mellitus Appendicitis Sister Healthy adult Grandfather Hyperlipidemia Stroke Grandmother Hypertension Grandfather Heart attack Grandmother Hypertension Social History marital status: number of children: 0 household members: spouse caregiver/support person: Yes housing: house pets and animals: Yes (dogs, cat - understands about toxo) education level: college 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) current occupational exposures/hazards: No special john needs: No travel history: over 6 months ago seatbelt use: always water heater temp set < 120 deg: Yes working smoke detector in home: Yes fire extinguisher in home: No carbon monox detector in home: Yes firearms in home: Yes firearms unloaded and locked: Yes do you feel safe at home: Yes Smoking Status: Never smoker second hand exposure: No alcohol intake: former substance use type: does not use during the past year weight has: increased > 10 lbs well-balanced diet: daily or most days daily servings fruits/ve or more times/day caffeine: No Type(s) of exercise: walking and yoga frequency: 1-2 times per week Meds Home Medications and Allergies Home Medications Medication Instructions Recorded Confirmed Type vitamins no.165-iron 13 1 tab PO DAILY 05/23/21 01/22/23 History mg-folic acid 1 mg chewable tablet Lacto-B.anim,bifid-inulin 30 cap PO 06/18/22 01/22/23 History billion cell-50 mg capsule,delay release (Fortify Probiotic) Allergies Allergy/AdvReac Type Severity Reaction Status Date / Time Bleach (Sodium Hypochlorite) AdvReac Mild Rash Verified 01/22/23 08:00 OB Exam Narrative Exam Narrative: Generally: Patient is sitting up in bed, no acute distress Lungs: Clear to auscultation bilaterally Cardiovascular: Regular rate and rhythm Fundal height: 43 cm EFW: 9 lb Extremities: 1+ edema Objective Labs 01/22/23 08:36 01/22/23 08:36 Labs: Laboratory Results - last 24 hr 01/22/23 01/22/23 01/22/23 08:36 08:36 09:20 WBC 12.4 H RBC 4.29 Hgb 12.1 Hct 36.7 MCV 85.6 MCH 28.2 MCHC 33.0 RDW 13.3 Plt Count 226 Neut % (Auto) 70.0 Lymph % (Auto) 22.6 L [place] % (Auto) 5.9 Eos % (Auto) 1.1 L Baso % (Auto) 0.4 Neut # (Auto) 8700 H Lymph # (Auto) 2800 [place] # (Auto) 700 Eos # (Auto) 100 Baso # (Auto) 100 BUN 9 Creatinine 0.62 Estimated GFR > 60 BUN/Creatinine Ratio 14.5 Uric Acid 5.5 AST 23 U Random Total Protein 7 Urine Creatinine 124.0 Protein/Creatinin Ratio 0.05 Blood Type 01/22/23 14:40 WBC RBC Hgb Hct MCV MCH MCHC RDW Plt Count Neut % (Auto) Lymph % (Auto) [place] % (Auto) Eos % (Auto) Baso % (Auto) Neut # (Auto) Lymph # (Auto) [place] # (Auto) Eos # (Auto) Baso # (Auto) BUN Creatinine Estimated GFR BUN/Creatinine Ratio Uric Acid AST U Random Total Protein Urine Creatinine Protein/Creatinin Ratio Blood Type O Negative Assessment and Plan Assessment and Plan Assessment and Plan narrative: Assessment: 32-year-old 3 para 0 at an estimated gestational age of 39 weeks Large for gestational age Contracted pelvis Plan: Primary low-transverse section The risks, benefits, and alternatives to the procedure were explained to the patient. The risks including bleeding, infection, injury to the bowel, bladder, or ureters. She understands these risks and agrees to proceed. A full par Q was held and consent form was signed. Time Spent with Patient Total time spent with greater than 50% in coordination of care (as documented) at patient's floor/unit and/or counseling patient:: 15-24 minutes
--- NOTE | 2023-01-22 15:57 | PM.PREOP ---
Pre-operative Note COVID-19 Criteria for continued procedure: Non-surgical alternatives not available or appropriate per current SOC Interval Note History & Physical reviewed/Exam performed by Physician: Yes Changes to H&P: No H&P completed within 30 days and has changed as indicated here:: 01/22/23
[2023-01-22] MEDS: CEFAZOLIN 2 GM/100 ML PREMIX 100 ML IV (16:00)
[2023-01-22] MEDS: ACETAMINOPHEN 325 MG TABLET 975 MG PO (16:00)
--- NOTE | 2023-01-22 16:57 | SUR.OPER ---
Baby girl born at 1645. Placenta delivered at 1650 after 3 minutes of delayed cord clamping. Pre operative FHT 140s. Placenta and cord blood sent with L&D RN Charlotte Belle (Joy).
[2023-01-22 17:45] VITALS: BP 112/80; PULSE 94; RESP 16; O2SAT 98
--- NOTE | 2023-01-22 17:47 | PM.OBCS.1 ---
Operative Date/Time/Diagnoses Date of procedure: 01/22/23 Time of procedure: 17:48 Pre-op diagnosis: Estimated gestational age of 39 weeks Large for gestational age Elevated blood pressure Contracted pelvis Post-op diagnosis: same Procedure & Clinicians Procedure: Primary low-transverse section Same procedure as scheduled: Yes Indications: Estimated gestational age of 39 weeks Contracted pelvis Large for gestational age Elevated blood pressure Surgeon: Cordelia Bain Yes if Unassisted: No Paste Up Copy Camera Operator: Kan Rutherford Reason for Paste Up Copy Camera Operator: The back office medical assistant was necessary to retract upon entry into the abdomen and uterus. He assisted with fundal pressure on delivery of the infant. He assisted with closure by retraction and clipping suture. He closed the contralateral fascia. Anesthesia Type: Spinal (With Duramorph) Operative Notes Findings: Live female in the L OT presentation Normal uterus and ovaries Normal left tube Right tube previously removed Closure Type: primary Specimen(s): cord blood Intraoperative meds administered: Acetaminophen, Duramorph and Pitocin Applied: Catheter (To continuous drainage) Estimated Blood Loss (mL): 550 Blood products transfused: none Procedure in detail: After informed consent was obtained, the patient was taken to the operating room where she was placed in the seated position. Spinal anesthesia was administered with Duramorph. She was placed in the dorsal supine position with a leftward tilt, and prepped and draped in the usual sterile fashion. A time-out was performed. After spinal anesthesia was found to be adequate, a Pfannenstiel skin incision was made 2 fingerbreadths above the pubic symphysis and carried through to the underlying layer of fascia. There was a small area of bleeding in the muscle on the patient's left side. Two simple interrupted sutures with 2-0 Vicryl were placed for hemostasis. The fascia was nicked in the midline and the incision extended bilaterally with the Raines scissors. The superior aspect of the fascial incision was grasped with the Maximus clamps, elevated, and the underlying rectus muscles dissected off sharply and bluntly. The rectus muscles were in midline. Peritoneum was identified, grasped between 2 hemostats, and entered sharply with the Metzenbaum scissors. This incision was extended superiorly and inferiorly with good visualization of the bladder. The bladder blade was inserted. The vesicouterine peritoneum was identified, grasped with a pickup, and entered sharply with the Metzenbaum scissors. This incision was extended bilaterally, and the bladder flap created digitally. The bladder blade was reinserted. The lower uterine segment was incised in a transverse fashion with the scalpel. Upon entering the amniotic sac there was copious amounts of clear amniotic fluid. The incision was extended cephalo caudad bluntly. The 's head was delivered without difficulty. The nose and mouth were suctioned with bulb suction. The remainder of the body delivered without difficulty. The infant was wrapped in warm blankets and placed on mom's chest. After 3 minutes, the cord was double clamped and cut. Cord bloods were obtained. Pitocin was given in the IV fluids. The placenta was expressed. The uterus was cleared of all clots and debris. The uterine incision was repaired with 1. Chromic in a running interlocking fashion. A second layer the same suture was used for an imbricating layer. Hemostasis was achieved. The gutters were cleared of all clots and debris. The left tube and ovary were examined and were found to be normal. On the right side the tube had been previously removed. The right ovary was normal. The gutters were again cleared of all clots and debris. The bladder flap was reapproximated using 2-0 Vicryl in a running fashion. The parietal peritoneum was closed using 2 0 Vicryl in a running fashion. The fascia was reapproximated using 0 Vicryl in a running fashion. Hemostasis was achieved in the subcutaneous layer using the Bovie. The subcutaneous layer was copiously irrigated with warm normal saline. Five simple interrupted sutures with 3-0 Vicryl were placed in the subcutaneous layer. The skin was closed with 4-0 Monocryl in a subcuticular fashion. Steri-Strips and an Aquacel dressing were placed. The uterus was expressed of a small amount of old blood. Uterus was marked at 2 fingerbreadths below the umbilicus. Sponge, lap, and instrument counts were correct x2. The patient tolerated the procedure well, and was taken to PACU in stable condition. Complications: none [place] Baby 1: Gender: Female Presentation: vertex Position: Left Occiput Transverse Placental Delivery Description: Expressed Cord Vessel Description: 3 Vessels and Clamped/Cut (After 3 minutes, per patient request) score (1 min): 8 score (5 min): 9 weight: 8 lb 9.8 oz Post-operative Condition: stable Disposition: PACU Aftercare: routine postop
[2023-01-22 17:50] VITALS: BP 115/71; PULSE 94; RESP 15; O2SAT 99
[2023-01-22 17:55] VITALS: BP 107/76; PULSE 92; RESP 16; O2SAT 97
[2023-01-22] MEDS: OXYCODONE IR 5 MG TABLET PO (20:17)
[2023-01-22] MEDS: IBUPROFEN 600 MG TABLET PO (20:18)
[2023-01-22] MEDS: ACETAMINOPHEN 325 MG TABLET 650 MG PO (22:05)
[2023-01-22 23:06] LABS: Add Manual Diff / Slide Review NO; Basophils Absolute Auto 0 /uL (0-100); Basophils Percent Auto 0.1 % (0-2); Eosinophils Absolute Auto 0 /uL (0-450); Eosinophils Percent Auto 0.2 % (2-4); Hematocrit 30.3 % (36-46); Lymphocytes Absolute Auto 2000 /uL (1100-4500); Lymphocytes Percent Auto 11.3 % (25-40); Mean Corpuscular HGB Conc 33.1 % (30-36); Mean Corpuscular Hemoglobin 28.5 PG (26-34); Mean Corpuscular Volume 86.1 fL (80-100); Monocytes Absolute Auto 800 /uL (0-900); Monocytes Percent Auto 4.7 % (3-14); Neutrophils Absolute Auto 14600 /uL (1500-7000); Neutrophils Percent Auto 83.7 % (50-75); Platelet Count 187 X10^3/uL (150-400); Red Blood Cell Count 3.52 X10^6/uL (4.0-5.2); Red Cell Distribution Width 13.5 % (11.6-14.8); White Blood Cell Count 17.4 X10^3/uL (4.5-11.0)
[2023-01-23] MEDS: LACTATED RINGERS 1,000 ML 120 ML IV (00:30)
[2023-01-23 01:22] VITALS: BP 135/80; PULSE 76; RESP 17; TEMP 36.2
[2023-01-23] MEDS: IBUPROFEN 600 MG TABLET PO ×4 (03:25→20:54)
[2023-01-23] MEDS: OXYCODONE IR 5 MG TABLET PO ×3 (03:28→13:49)
[2023-01-23] MEDS: ACETAMINOPHEN 325 MG TABLET 650 MG PO ×4 (03:28→20:53)
[2023-01-23 06:12] LABS: Hematocrit 28.4 % (36-46); Hemoglobin 9.4 g/dL (12.0-16.0)
[2023-01-23] MEDS: PRENATAL VIT,CALC/IRON/FOLIC 1 TABLET 1 TAB PO (09:16)
[2023-01-23] MEDS: DOCUSATE 100 MG CAPSULE PO (09:16)
[2023-01-23] MEDS: RHO(D) IMMUNE GLOBULIN 1,500 UNIT SYRINGE 1500 UNIT IM (18:33)
--- NOTE | 2023-01-23 19:56 | P.PNOB_ITS ---
Subjective - OB Subjective Patient comments: pain well controlled, tolerating diet and other (Pain with ) baby status: doing well [place] feeding status: breast and bottle feeding Date Patient Seen: 01/23/23 Time Patient Seen: 19:57 Interval history: Patient voided without the catheter. She is having some blistering and bleeding of the nipples. Exam Vital Signs (past 8 hours): Oxygen Delivery Method Room Air Narrative Exam Narrative: Generally: Patient standing in room, no acute distress Fundus: Firm at U -1 Incision: Clean dry and intact with Aquacel dressing Extremities: 1+ edema, negative Homans Objective Labs 01/23/23 05:37 01/22/23 08:36 Labs: Laboratory Results - last 24 hr 01/22/23 01/22/23 01/23/23 21:16 21:16 05:37 WBC 17.4 H RBC 3.52 L Hgb 10.0 L 9.4 L Hct 30.3 L 28.4 L MCV 86.1 MCH 28.5 MCHC 33.1 RDW 13.5 Plt Count 187 Neut % (Auto) 83.7 H Lymph % (Auto) 11.3 L [place] % (Auto) 4.7 Eos % (Auto) 0.2 L Baso % (Auto) 0.1 Neut # (Auto) 57885 H Lymph # (Auto) 2000 [place] # (Auto) 800 Eos # (Auto) 0 Baso # (Auto) 0 Maternal Bleed Negative Assessment & Plan Plan day: 1 plan OB: routine postop care Comments: Possible discharge January 24, 2023 Time Spent With Patient Time: Total time spent is greater than 50% in coordination of care (as documented) at patient's floor/unit and/or counseling patient: Time with patient: less than 15 minutes
[2023-01-24] MEDS: ACETAMINOPHEN 325 MG TABLET 650 MG PO ×3 (03:10→14:58)
[2023-01-24] MEDS: IBUPROFEN 600 MG TABLET PO ×3 (03:10→14:58)
[2023-01-24] MEDS: DOCUSATE 100 MG CAPSULE PO (09:16)
--- NOTE | 2023-02-22 12:38 | PM.OBDS.1 ---
Discharge Providers Provider Date of admission: 01/22/23 08:23 Discharge Date: 01/24/23 Primary care physician: Sukumar Lua MD Consults: 01/22/23 19:22 Consult to Press Set Up Routine Comment: Discharge provider: Cordelia Pritchard MD Summary Hospital Course Date Patient Seen: 01/24/23 Time Patient Seen: 10:00 Diagnoses: Thirty-nine weeks gestation Large for gestational age infant, estimated weight of 9 lb Primary low-transverse section Hospital Course: Patient is a 32-year-old 3 para 0 at an estimated gestational age of 39 weeks. She was found to have a large for gestational age infant at estimated weight of 9 lb. She opted for a primary low-transverse section which she underwent on January 22, 2023 without complication. On postop day # 1 her Gardner catheter was removed. She was able to void without the catheter. Her pain was well controlled. She ambulated without assistance. She was tolerating a diet. No nausea or vomiting. She was discharged home on postop day # 2 which was Peripartum Data Infant Delivery Method: Section Procedures: Spinal anesthesia Primary low-transverse section complications: none 1: Gender: Female Disposition of : home Status at Discharge Cognitive/behavioral status at discharge: oriented Functional status at discharge: independent ambulation Overall status at discharge: patient is progressing back to baseline Time Spent with Patient Time attestation: Total time spent providing and/or coordinating discharge services: Time spent: Less than 30 minutes Objective Labs 01/23/23 05:37 01/22/23 08:36 Exam Vital Signs (past 8 hours): Oxygen Delivery Method Room Air Narrative Exam Narrative: Generally: Patient is sitting up in bed, no acute distress Lungs: Clear to auscultation bilaterally Cardiovascular: Regular rate and rhythm Fundus: Firm at U Incision: Clean dry and intact with Aquacel dressing Extremities: 1+ edema, negative Homans Discharge Plan Discharge Plan Patient Disposition: Home Provider Discharge Comment: Call with fever, chills, redness or drainage around the incision or bleeding vaginally more than a pad in an hour Tylenol 650 mg every 6 hours as needed Ibuprofen 600 mg every 6 hours as needed Stool softener as needed Push oral fluids Discharge orders & Medications Prescriptions: New oxycodone 5 mg tablet 5 mg PO Q6H PRN (Reason: pain) Qty: 20 0RF Continued PNV no.165-iron fum-folic acid 13 mg iron- 1 mg tablet,chewable 1 tab PO DAILY No Action (DME) Double Electric Breast Pump See Rx Instructions .Route .MEDSUPPLY Qty: 1 0RF Rx Instructions: As directed Follow up/Referrals: Cordelia Pritchard MD [Physician] - (Appointment with on Tuesday, January 30, at 11:30 am for aquacel removal and then a 6 week appointmen on at 9:45 am.) Diet/Activity/Treatments Diet: Regular Activity: No heavy lifting Nothing in the vagina for 6 weeks Skin/Wound/Dressing Care Report to your healthcare provider any signs of infection, such as:: chills, fever, increased pain, unusual drainage and unusual redness Dressing: Do not remove Visit Report/Discharge Packet Instructions: DI for , DI for Prescription Opioid Use Stand Alone Forms: Discharge: Care, Patient Portal/API, Stroke Signs & Symptoms Discharge Data Primary Care Provider: Sukumar Lua Discharges patient from system. Discharge Date/Time: 01/24/23 16:15
== END 2023-01-24 16:15 | disposition home or self-care (01) | DRG 788 ==
PROVIDERS: Admitting Provider Obstetrics & Gynecology; PCP Family Medicine; Referring Provider Obstetrics & Gynecology; Visit Provider Obstetrics & Gynecology
PROC: 10D00Z1 Extraction of Products of Conception, Low, Open Approach (ICD-10-PCS; CPT 59514; principal; 2023-01-22 15:15)
DX: O33.1 Maternal care for disproportion due to generally contracted pelvis (principal); O36.63X0 Maternal care for excessive fetal growth, third trimester, not applicable or unspecified; O99.824 Streptococcus B carrier state complicating childbirth; Z37.0 Single live birth; O99.350 Diseases of the nervous system complicating pregnancy, unspecified trimester; Z3A.38 38 weeks gestation of pregnancy; M79.7 Fibromyalgia; O99.344 Other mental disorders complicating childbirth; F41.9 Anxiety disorder, unspecified; F32.A Depression, unspecified; O99.892 Other specified diseases and conditions complicating childbirth; R03.0 Elevated blood-pressure reading, without diagnosis of hypertension
CPT/HCPCS: 36415; 59025; 59050; 59510; 59514; 76815; 82570; 84156; 84450; 84550; 85014; 85018; 85025; 85461; 86850; 86900; 86901; G0379; J0690; J2274; J2790; J3010

== ENCOUNTER → 2023-03-29 14:20 | Outpatient (CLI) | payer OTHER, SELFPAY | PROVIDERS: PCP Family Medicine; Visit Provider Student in an Organized Health Care Education/Training Program | DX: L60.0 Ingrowing nail (principal) | CPT/HCPCS: 87070; 87075; 87077; 87147; 87186; 87205 ==

== ENCOUNTER → 2023-04-03 11:15 | Outpatient (CLI) | payer OTHER, SELFPAY ==
--- NOTE | 2023-04-03 11:15 | DI.US.S_ITS ---
LIMITED ULTRASOUND OF LEFT BREAST: 04/03/2023 CLINICAL: Persistant Mastitis, open wound. No prior exams were available for comparison. Color flow and real-time ultrasound of the left breast were performed. Diffuse edema and skin thickening. At 10:00 6cm from the nipple, there is a suspected abscess measure 2.1 x 2.7 x 1.5cm. There is reported pus leakage from this site. Another suspected fluid collection is seen at 9:00, 8cm from the nipple, measuring 0.5 x 0.4 x 0.5cm. IMPRESSION: PROBABLY BENIGN Per clinical symptoms and imaging appearance, findings are consistent with mastitis with abscesses/phlegmons as above. Consider antibiotics and drainage if clinically appropriate A follow-up ultrasound in 1 month is recommended to evaluate if there is any underlying mass. This exam was interpreted at Station ID: [id number]. Electronically Signed By: Ming Rachel M.D. lc/:04/03/2023 12:40:47 letter sent: Followup Recommended Ultrasound BI-RADS: 3 Probably benign
== END ==
PROVIDERS: PCP Family Medicine; Referring Provider Family Medicine; Visit Provider Family Medicine
DX: N61.0 Mastitis without abscess (principal)
CPT/HCPCS: 76642

== ENCOUNTER 2023-05-06 14:16 | Day surgery (SDC) | payer OTHER, SELFPAY ==
[2023-05-02 13:54] VITALS: BMI 31.8
[2023-05-06 14:37] VITALS: BP 121/70; PULSE 90; RESP 16; TEMP 36.3; O2SAT 98; BMI 31.8
--- NOTE | 2023-05-06 15:34 | P.HP_ITS ---
History of Present Illness History of Present Illness Date Patient Seen: 05/06/23 Time Patient Seen: 15:34 Chief complaint: I&D of Left Breast Abscess Narrative: Usha is here for her incision and drainage procedure. The area of her left breast remains swollen but she no longer is able to feel the 2 pea-sized nodules after she empties her breast. [facility] Medical History Bleeding in early Chronic back pain (~2017) Fibromyalgia (~2017) History of gonorrhea Shoulder pain (~2017) Surgical History Anesthesia History of salpingectomy History of tonsillectomy (~2010) Family History Mother Miscarriage Sister Miscarriage Gestational diabetes mellitus Appendicitis Sister Healthy adult Grandfather Hyperlipidemia Stroke Grandmother Hypertension Grandfather Heart attack Grandmother Hypertension Social History marital status: number of children: 0 household members: spouse and children caregiver/support person: Yes housing: house pets and animals: Yes (dogs, cat - understands about toxo) education level: college occupational status: employed ([employer] program) current occupational exposures/hazards: No special john needs: No travel history: over 6 months ago seatbelt use: always water heater temp set < 120 deg: Yes working smoke detector in home: Yes fire extinguisher in home: No carbon monox detector in home: Yes firearms in home: Yes firearms unloaded and locked: Yes do you feel safe at home: Yes Smoking Status: Never smoker second hand exposure: No alcohol intake: former substance use type: does not use during the past year weight has: increased > 10 lbs well-balanced diet: daily or most days daily servings fruits/ve or more times/day caffeine: No Type(s) of exercise: walking and yoga frequency: 1-2 times per week Meds Home Medications and Allergies Home Medications Medication Instructions Recorded Confirmed Type Double Electric Breast Pump #1 ea 01/24/23 05/01/23 Rx Allergies Allergy/AdvReac Type Severity Reaction Status Date / Time Bleach (Sodium Hypochlorite) AdvReac Mild Rash Verified 05/06/23 14:36 Exam Vital Signs (past 8 hours): - 05/06/23 14:37 Temperature 97.4 F L Pulse Rate 90 Respiratory Rate 16 Blood Pressure 121/70 Pulse Oximetry 98 Narrative Exam Narrative: Left breast similar to prior exam with an area of induration and fluctuance in the upper inner quadrant of the breast Assessment & Plan Assessment and plan (1) Abscess of breast: Problem details: left, 11 o'clock Status: Acute Plan Proceed with incision and drainage of left breast abscess. We will send some fluid for micro analysis
[2023-05-06] MEDS: LACTATED RINGERS 1,000 ML 84 ML IV (15:41)
--- NOTE | 2023-05-06 16:26 | SUR.OPER ---
Supine on padded OR bed, head on pillow, arms secured on padded arm boards at <90 degrees abduction, legs uncrossed, safety belt at thigh, tape over blanket over lower legs.
--- NOTE | 2023-05-06 16:32 | PM.OP.1 ---
Operative Date/Time/Diagnoses Date of procedure: 05/06/23 Time of procedure: 16:32 Pre-op diagnosis: Left breast abscess Post-op diagnosis: same Procedure & Clinicians Procedure: Incision and drainage of left breast abscess Same procedure as scheduled: Yes Surgeon: Jorge Pierce Anesthesia Type: General Operative Notes Procedure in detail: The patient was marked in the preoperative holding area. No antibiotics were planned as procedure would an incision and drainage procedure. The patient was placed on the operating room table in the supine position and general anesthesia was induced via LMA. The left breast was prepped and draped in the usual fashion and a time-out was performed. Lidocaine with epinephrine was injected over the area of greatest fluctuance. A 15 blade scalpel was used to create a 2 cm skin incision. Some bloody purulent fluid was expressed. Cultures were taken with a swab. The suction tip was inserted into cavity break up any loculations. Additional local was injected. Cavity was then packed with about 3 in of quarter-inch iodoform gauze. Additional dressings were placed over the iodoform and the patient was awakened and brought to recovery room. EBL: 10 mL Post-operative Condition: stable Disposition: PACU
[2023-05-06 16:38] VITALS: BP 94/58; PULSE 105; RESP 16; TEMP 36.3; O2SAT 97
[2023-05-06 16:43] VITALS: BP 106/63; PULSE 96; RESP 17; O2SAT 96
[2023-05-06 16:48] VITALS: BP 101/66; PULSE 82; RESP 15; O2SAT 97
[2023-05-06 16:51] VITALS: BP 105/66; PULSE 78; RESP 14; TEMP 36.3; O2SAT 98
[2023-05-06 16:58] VITALS: BP 105/66; PULSE 78; RESP 11; O2SAT 99
== END 2023-05-06 17:28 | disposition home or self-care (01) ==
PROVIDERS: PCP Family Medicine; Referring Provider Surgery; Visit Provider Surgery
PROC: (CPT 10060; principal; 2023-05-06 16:00)
DX: N61.1 Abscess of the breast and nipple (principal)
CPT/HCPCS: 10060; 87070; 87075; 87205; J1100; J2250; J2405; J2704; J3010

== ENCOUNTER 2024-05-18 01:22 | Emergency (ER) | payer OTHER, SELFPAY ==
[2024-05-18 01:36] VITALS: BP 106/66; PULSE 88; RESP 18; TEMP 36.8; O2SAT 99; BMI 25.0
[2024-05-18] MEDS: KETOROLAC 30 MG/ML VIAL 15 MG IV (02:03)
[2024-05-18] MEDS: SODIUM CHLORIDE 0.9% 1,000 ML 1000 ML IV (02:04)
[2024-05-18] MEDS: ONDANSETRON 4 MG/2 ML INJ IV (02:04)
--- NOTE | 2024-05-18 02:37 | ED.NAVMDI ---
HPI - Nausea/Vomiting/Diarrhea General Chief complaint: Nausea/Vomiting/Diarrhea Stated complaint: possible food poisioning, n/v/d Time Seen by Provider: 05/18/24 01:23 Source: patient History of Present Illness HPI Narrative: 33-year-old female with history of fibromyalgia presents with 4 hours of nausea, vomiting, diarrhea. Thinks she may have food poisoning. States that she has vomited at least 10 times and had at least 10 episodes of diarrhea. Reports associated lower abdominal cramping. Denies blood in emesis or in stool. Related Data Previous Rx's Medication Instructions Recorded Double Electric Breast Pump #1 ea 01/24/23 hydrocodone 5 mg-acetaminophen 325 1 tab PO Q8H PRN pain #7 tabs 05/06/23 mg tablet ondansetron 4 mg disintegrating 4 mg PO Q8H PRN nausea and 05/18/24 tablet vomiting #30 tabs Allergies Allergy/AdvReac Type Severity Reaction Status Date / Time Bleach (Sodium Hypochlorite) AdvReac Mild Rash Verified 05/13/23 11:06 Patient History Medical History History of gonorrhea Bleeding in early Shoulder pain (~2017) Fibromyalgia (~2017) Chronic back pain (~2017) Surgical History History of salpingectomy Anesthesia History of tonsillectomy (~2010) Family History Mother Miscarriage Sister Miscarriage Gestational diabetes mellitus Appendicitis Sister Healthy adult Grandfather Hyperlipidemia Stroke Grandmother Hypertension Grandfather Heart attack Grandmother Hypertension Social History marital status: number of children: 0 household members: spouse and children caregiver/support person: Yes housing: house pets and animals: Yes (dogs, cat - understands about toxo) education level: college 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) current occupational exposures/hazards: No special john needs: No travel history: over 6 months ago seatbelt use: always water heater temp set < 120 deg: Yes working smoke detector in home: Yes fire extinguisher in home: No carbon monox detector in home: Yes firearms in home: Yes firearms unloaded and locked: Yes do you feel safe at home: Yes Smoking Status: Never smoker second hand exposure: No alcohol intake: former substance use type: does not use during the past year weight has: increased > 10 lbs well-balanced diet: daily or most days daily servings fruits/ve or more times/day caffeine: No Type(s) of exercise: walking and yoga frequency: 1-2 times per week Smoking Status: Never smoker alcohol intake frequency: holidays/special occasions only Substance Use Type: does not use Exam Initial Vital Signs Initial Vital Signs: Vital Signs Temperature 98.3 F 05/18/24 01:36 Pulse Rate 88 05/18/24 01:36 Respiratory Rate 18 05/18/24 01:36 Blood Pressure 106/66 05/18/24 01:36 Pulse Oximetry 99 05/18/24 01:36 Oxygen Delivery Method Room Air 05/18/24 01:36 Const: Awake, alert, uncomfortable appearing, nontoxic Cardiac: regular rate, regular rhythm RESP: unlabored, no wheezing GI: Soft, nontender, nondistended Skin: Warm, Dry, intact, no rashes Neuro: AO x3, CN II-XII grossly intact, moves all extremities Course Orders Ordered: Discontinued Medications Sodium Chloride (Normal Saline 0.9%) 1,000 mls @ 1,000 mls/hr IV BOLUS ONE Stop: 05/18/24 02:40 Last Infusion: 05/18/24 03:04 Dose: Infused Documented By: Admin: 05/18/24 02:04 Dose: 1,000 mls/hr Documented By: JOE Ketorolac Tromethamine (Ketorolac 30 Mg/Ml Vial) 15 mg IV NOW ONE Stop: 05/18/24 01:42 Last Admin: 05/18/24 02:03 Dose: 15 mg Documented By: JOE Metoclopramide HCl (Metoclopramide 10 Mg/2 Ml Inj) 10 mg IV NOW ONE Stop: 05/18/24 03:49 Last Admin: 05/18/24 03:53 Dose: 10 mg Documented By: Ondansetron HCl (Ondansetron 4 Mg/2 Ml Inj) 4 mg IV NOW ONE Stop: 05/18/24 01:54 Last Admin: 05/18/24 02:04 Dose: 4 mg Documented By: JOE Vital Signs Vital signs: Vital Signs - 8 hr 05/18/24 01:36 05/18/24 04:13 Temperature 98.3 F Pulse Rate 88 89 Respiratory Rate 18 16 Blood Pressure 106/66 96/54 L Pulse Oximetry 99 98 Oxygen Delivery Method Room Air Room Air MDM - Nausea/Vomiting/Diarrhea Lab Data Labs: Point of Care Testing Test Results Negative Urine Dip Bedside Urine Glucose Negative Bedside Urine Bilirubin + 1 Bedside Urine Ketone +/- 5 Urine Specific [place] 1.030 Bedside Urine Occult Blood - Negative Bedside Urine pH 5.5 Bedside Urine Protein +/- 15 Bedside Urine Urobilinogen - Negative Bedside Urine Nitrite - Negative Bedside Urine Leukocytes - Negative Esterase MDM Narrative Medical decision making narrative: Nontoxic appearing patient with several hours of vomiting and diarrhea. Abdomen soft, nondistended. Hemodynamically stable. Due to the relatively short timeframe there is no indication for labs or imaging at this time. IV fluids and antiemetics ordered with improvement in symptoms. Patient is subsequently able to tolerate oral fluids. Patient asked if we should check for E coli, however based on the very short timeframe there again is little utility in testing for this organism and symptomatic treatment is only indicated at this time. Antiemetics sent to pharmacy of choice. Discharge Plan Departure Patient Disposition: Home Clinical Impression: Gastroenteritis Instructions: DI for Vomiting -- Adult Activity Restrictions/Additional Instructions: Your urine did not show any sign of infection or significant dehydration. You have been given a L of IV fluids and antinausea medications. Follow up as needed with your primary care doctor. Antinausea medications has been sent to the [facility] in [place]. Follow a light diet for the next several days to avoid irritating your stomach. It was generally recommended against taking antidiarrheals in acute diarrhea, however if your symptoms are unbearable you may take Imodium to decrease your diarrhea. Prescriptions: New ondansetron 4 mg tablet,disintegrating 4 mg PO Q8H PRN (Reason: nausea and vomiting) Qty: 30 0RF No Action (DME) Double Electric Breast Pump See Rx Instructions .Route .MEDSUPPLY Qty: 1 0RF Rx Instructions: As directed hydrocodone-acetaminophen 5-325 mg tablet 1 tab PO Q8H PRN (Reason: pain) Qty: 7 0RF Referrals: Sukumar Lua MD [Primary Care Provider] - Stand Alone Forms: Patient Portal/API
[2024-05-18] MEDS: METOCLOPRAMIDE 10 MG/2 ML INJ IV (03:53)
[2024-05-18 04:13] VITALS: BP 96/54; PULSE 89; RESP 16; O2SAT 98
== END 2024-05-18 04:14 | disposition home or self-care (01) ==
PROVIDERS: Emergency Provider Emergency Medicine; PCP Family Medicine
DX: K52.9 Noninfective gastroenteritis and colitis, unspecified (principal); R10.30 Lower abdominal pain, unspecified
CPT/HCPCS: 36415; 81003; 81025; 96361; 96374; 96375; 99284; J1885; J2405; J2765